=== PATIENT | female | born 1990 | race Caucasian/White ===

== ENCOUNTER 2025-02-15 11:13 | Emergency (ER) | payer BC, SELFPAY ==
[2025-02-15 11:14] VITALS: BP 135/80; PULSE 85; RESP 16; TEMP 36.7; O2SAT 98; BMI 25.7
--- NOTE | 2025-02-15 11:24 | ED_ITS ---
Discharge Plan Disposition Patient Disposition: Home, Self-Care Condition: Good Referrals Follow up/Referrals: Provider,Referral, [Primary Care Provider, Medical] - See instructions Activity Restrictions/Add. Instructions Additional Instructions/Restrictions: You can soak your finger with soap and water. You can cover it with a Band-Aid if needed otherwise the nail will grow back on its own Clinical Impressions Clinical Impression: Splinter in skin Instructions Patient Instructions: DI for Splinter Removal, DI for Skin Abscess Print Language Print Language: Croatian Discharge ED Provider: Monika Love General Adult HPI General Chief complaint: Skin/Abscess/Foreign Body Stated complaint: splinter in left hand ring finger Time Seen by Provider: 02/15/25 11:24 History of Present Illness HPI narrative: Otherwise healthy 34-year-old female who presented to the emergency department with a splinter under the nail of her left ring finger. 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 Patient has no other significant medical problems. Patient is not on any blood thinners. Patient has no other injuries at this time. [facility] Disclaimer: The information contained in this section may have been updated after the p joelle was seen, as this information can be updated by other users. Social History Smoking Status: Never smoker alcohol intake: never current occupational status: other Travel in the last 8 weeks?: None ROS Obtained: Yes All systems reviewed & no additional complaints except as documented and Yes Systems reviewed as appropriate & no additional complaints except as documented Physical Exam General General appearance: alert and in no apparent distress Head Head exam: atraumatic, normocephalic and normal inspection Eye Eye exam: Present normal appearance, PERRL and EOMI; Absent scleral icterus ENT ENT exam: Present normal exam and normal external ear exam Neck Neck exam: Present normal inspection and full ROM Chest Chest inspection: Present normal inspection and symmetric chest wall rise Respiratory Respiratory exam: Present normal lung sounds bilaterally; Absent respiratory distress or wheezes Cardiovascular Cardiovascular exam: Present regular rate, normal rhythm and normal heart sounds Abdominal Exam Abdominal exam: Present soft and distention; Absent tenderness, guarding or rebound Extremities Exam Extremities exam: Present normal inspection, full ROM and other (L hand with splinter under ring finger nail) Back Exam Back exam: Present normal inspection and full ROM Neurological Exam Neurological exam: Present alert and oriented X3 Psychiatric Psychiatric exam: Present normal affect and normal mood Skin Skin exam: Present warm and dry Medical Decision Making Medical Records Medical records reviewed: Yes I reviewed the patient's medical records. Screening: Per USPSTF and CDC recommendations, given the prevalence of disease in our region, it is our hospital?s policy to screen for HIV and viral Hepatitis for all patients aged 18 and over and those with ongoing risk factors. Amol Inquiry Pt receiving controlled substance: No Vital Signs: 02/15/25 11:14 02/15/25 11:35 Temperature 98.0 F 98.0 F Temperature Source Oral Oral Pulse Rate 80 Pulse Rate [Right] 85 Respiratory Rate 16 18 Blood Pressure 120/80 Blood Pressure [Right Arm] 135/80 Blood Pressure Mean [Right Arm] 98 Blood Pressure Source Automatic Cuff Blood Pressure Source [Right Arm] Automatic Cuff 02 Sat by Pulse Oximetry 98 Oxygen Delivery Method Room Air Room Air Lab Data Lab results reviewed: Yes I reviewed the patient's lab results. Medical Decision Narrative: Patient is an otherwise healthy 34-year-old female who presented to the emergency department with a splinter underneath her left ring finger. On arrival, patient was hemodynamically stable with unremarkable vital signs. Differential includes but not limited to: Foreign body, laceration, fracture, vascular injury, amongst others. Hemostat was obtained and splinter was partially exposed under the fingernail on the left ring finger. Splinter was removed with minimal bleeding. Patient's wound was covered no laceration requiring tetanus. Patient was otherwise discharged home in stable condition. Wound care instructions were provided. Procedures Foreign Body Removal Time Out Performed: Yes Site: hand Description of foreign body: other (splinter) Sedation/Analgesia: none Technique: manual removal Confirmed by:: direct visualization Complications: none Post-procedure exam: awake, alert Neurovascular: normal distal pulse Critical Care Critical Care Time Critical Care Time: No
[2025-02-15 11:35] VITALS: BP 120/80; PULSE 80; RESP 18; TEMP 36.7; O2SAT 98
--- OUTSIDE RECORDS SUMMARY | 2025-02-15 11:42 | XMS_ITS | Clinical Summary ---
Author Organization Healthcare Address [address] [place] [address] Care Team Providers Care Lay Out Former Name Role Phone Fidel Kidd MD Primary Care Provider [phone] Allergies Active Allergy Reactions Criticality Noted Date Comments Shellfish Allergy Unknown - Patient st ates they do not know rxn details Low 09/23/2017 Medications norethindrone-ethi nyl estradiol (07/23) 1-20 MG-MCG tablet Take 1 tablet by mouth 1 (one) time each day. 84 tablet 1 1 Active sertraline (Zoloft) 50 MG tablet Take 1 tablet (50 mg total) by mouth 1 (one) time each day. 90 tablet 1 1 Active busPIRone (Buspar) 7.5 MG tabletIndications: Anxiety Take 1 tablet (7.5 mg total) by mouth 2 (two) times a day. 60 tablet 2 2 Active norgestimate-ethin yl estradiol (Ortho Tri-Cyclen LO) 0.18/0.215/0.25 MG-25 MCG tabletIndications: Encounter for initial prescription of contraceptive pills Take 1 tablet by mouth 1 (one) time each day. 84 tablet 3 2 Active Active Problems Problem Noted Date Diagnosed Date Anxiety 08/25/2021 Oral contraception initiation 02/24/2021 Abnormal test 06/16/2020 Enlarged thyroid 03/31/2020 Resolved Problems Problem Noted Date Diagnosed Date Resolved Date Two vessel umbilical cord 12/08/2020 Elevated blood pressure affe cting in third trimester, antepartum 12/08/2020 Supervision of other high ri sk pregnancies, third trimester 12/08/2020 08/25/2021 Immunizations Immunization Administration Dates Next Due Influenza, injectable, quadr ivalent, preservative free 05/22/2020,05/22/2020,02/19/2017,2015 Tdap 09/29/2020,09/29/2020,01/30/2015 Family History Medical History Relation Name Comments Heart attack Father Hypertension Father Hypertension Father's Sister Hypothyroidism Mother Breast cancer Mother's Sister Hypothyroidism Sister Relation Name Status Comments Father Father's Sister Mother Mother's Sister Sister Social History Tobacco Use Types Packs/Day Years Used Date Smoking Tobacco: Never Smokeless Tobacco: Never Alcohol Use Standard Drinks/Week Comments Never 0 (1 standard drink = 0.6 oz pur e alcohol) Marshall Depression Scale Answer Date Recorded Marshall Depression Scale Total 8 02/24/2021 The thought of harming myself has occurred to me . Never 02/24/2021 Comments No Sex and Gender Information Value Date Recorded Sex Assigned at Female 12/12/2020 8:14 PM EDT Legal Sex Female 6:49 PM EDT Gender Identity Female 12/12/2020 8:14 PM EDT Sexual Orientation Straight 12/12/2020 8: 14 PM EDT Last Filed Vital Signs Vital Sign Reading Time Taken Comments Blood Pressure 131/81 08/25/2021 3:09 PM EST Pulse 92 08/25/2021 3:09 PM EST Temperature - - Respiratory Rate - - Oxygen Saturation - - Inhaled Oxygen Concentration - - Weight 93.4 kg (205 lb 14.6 oz) 08/25/2021 3:09 PM EST Height 162.6 cm (5' 4 ) 08/25/2021 3:09 PM EST Body Mass Index 35.34 08/25/2021 3:09 PM EST Plan of Treatment Health Maintenance Due Date Last Done Comments [facility]-Depression Screening 1992 [facility]-Infant/Child/Adol SDOH Screenings 1992 [facility]-Varicella Vaccines (1 of 2 - 13+ 2-dose series) 2005 [facility]- SDOH Screenings 2010 [facility]-Adult SDOH Screenings 2010 [facility]-Hepatitis B Vaccines (1 of 3 - 19+ 3-dose series) 2011 HPV Vaccines (1 - 3-dose SCDM series) 2019 [id number] Vaccine (3 - season) 2024 05/09/2021, 03/22/2021 [facility]-Pap Smear 08/25/2024 08/25/2021 [facility]-Influenza Vaccine (#1) 03/04/202505/22, 05/22/2020, 02/19/2017, Additional history exists [facility]-Cervical Cancer Screening 08/25/2026 [facility]-HPV/Cotest 08/25/2026 08/25/2021 [facility]-DTaP,Tdap,and Td Vaccines (4 - Td or Tdap) 09/29/2030 09/29/2020, 09/29/2020, 01/30/2015 [facility]-Zoster Vaccines (1 of 2) 2042 [facility]-HIB Vaccines Aged Out No longer e ligible based on patient's age to complete this topic [facility]-Hepatitis A Vaccines Aged Out No longer eligible based on patient's age to complete this topic [facility]-IPV Vaccines Aged Out No longer e ligible based on patient's age to complete this topic [facility]-Pneumococcal Vaccine: Pediatrics (0 to 5 Years) and At-Risk Patients (6 to 49 Years) Aged Out No longer eligible based on patient's age to complete this topic [facility]-Rotavirus Vaccines Aged Out No lo nger eligible based on patient's age to complete this topic Procedures Procedure Name Priority Date/Time Associated Diagnosis Comments PAP TEST - CYTOLOGY Routine 08/25/2021 3:31 PM EST Pap smear for cervical cancer screening from Last 3 Months or Most Recently Relevant to Health Maintenance Results * Pap Smear (08/25/2021 3:31 PM EST) Case Report Cytology Case: [id number] Authorizing Provider: Pema Grove Collected: 08/25/2021 1531 Ordering Location: Obstetrics & Gynecology Received: 08/26/2021 0838 First Screen: PRERNA Shaw Specimen: ThinPrep Pap Test, Liquid-Based Cervical/Vaginal, CERVICAL/VAGINAL 08/28/2021 2:02 PM EST [facility] Interpretation NEGATIVE FOR INTRAEPITHELIAL LESION OR MALIGNANCY 08/28/2021 2:02 PM EST [facility] at 1402 EST Specimen Adequacy Satisfactory for evaluation; endocervical/mcdonough sformation zone component present. Slide scanned and imaged by ThinPrep Imaging System with manual review of all selected solomon. 08/28/2021 2:02 PM EST [facility] Cervical cytology is a screening test primarily for squamous cancers and precursors and has associated false negative and positive results. New technologies such as liquid based sampling may decrease but will not eliminate all false negative results. Regular screening and follow-up of unexplained clinical signs and symptoms are recommended to minimize false negative results. Please see the ASCCP website (www.asccp.org)fo r followup recommendations. If HPV testing was requested, correlation with the results is suggested (please call Microbiology at [phone] for results). 08/28/2021 2:02 PM EST [facility] Menstrual Status Cyclic 08/28/19 2:02 PM EST [facility] Contraceptive History control pills 08/28/2021 2:02 PM EST [facility] Screening Type Routine Screen 2021 2:02 PM EST [facility] High Risk? No 08/28/2021 2:02 PM EST [facility] HPV Testing Requested? Request HPV testing if ASCUS or LSIL. 08/28/2021 2:02 PM EST [facility] Previous Cancer History No 08/28/2021 2:02 PM EST [facility] Clinical Information Z12.4 - Pap smear for cervical cancer screening [ICD-10-CM] 08/28/2021 2:02 PM EST [facility] Last Menstrual Period 08/18/2021 08/28/2021 2:02 PM EST [facility] Swab Vaginal and cervical cytologic material / Unknown Non-blood Collection / Unknown 08/25/2021 3:31 PM EST 08/26/2021 8:38 AM EST Pema Grove APRN, [facility] ORDERA BLES Final Result [facility] [address] [place] [address] from Last 3 Months or Most Recently Relevant to Health Maintenance Care Teams Lay Out Former Relationship Specialty Start Date End Date Fidel Kidd MD [address] [place] [address] PCP - General 11/14/20
== END 2025-02-15 12:04 | disposition home or self-care (01) ==
PROVIDERS: Emergency Provider Student in an Organized Health Care Education/Training Program
DX: S60.455A Superficial foreign body of left ring finger, initial encounter (principal); X58.XXXA Exposure to other specified factors, initial encounter
CPT/HCPCS: 10120; 99282